=== PATIENT | male | born 1955 | race Caucasian/White ===

== ENCOUNTER 2017-11-13 16:12 | Emergency (ER) | payer OTHER ==
[~2017-11-13] VITALS: Ht 177.8 cm; Wt 86.2 kg
--- NOTE | 2017-11-13 17:02 | ED HAND/WRIST INJURY COMPLAINT ---
See Addendum History of Present Illness General Chief Complaint: Laceration Procedure Stated Complaint: LEFT WRIST LAC FROM LAMP Source: patient, family, old records Exam Limitations: no limitations Vital Signs & Intake/Output Vital Signs & Intake/Output Vital Signs Date Time Temp Pulse Resp B/P B/P Pulse O2 O2 Flow FiO2 Mean Ox Delivery Rate 11/13 1815 140/88 11/13 1618 96.8 88 15 156/94 97 Room Air Room Air Allergies Coded Allergies: No Known Allergies (11/13/17) Reconcile Medications Ibuprofen 600 MG TABLET 1 TAB PO Q6P PRN pain with food Triage Note: PT TO ED FOR LAC TO L WRIST APPROX HALF AN INCH. UNKNOWN LAST TETANUS. CUT BY LIGHT BULB. NO BLOOD THINNERS. CONTROLLED BLEEDING IN TRIAGE. "I I FELT IT HIT THE BONE WHEN IT CUT ME." DRESSING APPLIED IN TRIAGE. Triage Nurses Notes Reviewed? yes Occurred: just prior to arrival Duration: minute(s):, constant, continues in ED Timing: recent history Injury Environment: home Severity: moderate Pain/Injury Location: Left: Wrist. Context: blow, incision, laceration Method of Injury: incised, laceration (broken light bulb) Modifying Factors: Improves With: immobilization. Worsens With: movement. Associated Symptoms: stiffness HPI: Prior to admission patient was moving objects from storage when a light bulb from a box fell onto his left wrist causing laceration. He complains of pain at the site and limited range of motion. He denies fever chills nausea vomiting diarrhea abdominal pain chest pain shortness breath headache dysuria rash. Past History Travel History Traveled to [place] past 21 day No Medical History Any Pertinent Medical History? none Neurological: NONE EENT: NONE Cardiovascular: NONE Respiratory: NONE Gastrointestinal: NONE Hepatic: NONE Renal: NONE Musculoskeletal: NONE Psychiatric: NONE Endocrine: NONE Blood Disorders: NONE Cancer(s): NONE LOCOMOTIVE OBSERVER/Reproductive: NONE Tetanus Vaccine: 11/13/17 Surgical History Surgical History: non-contributory Psychosocial History What is your primary language Filipino Tobacco Use: Never used ETOH Use: denies use Illicit Drug Use: denies illicit drug use Family History Hx Contributory? No Review of Systems Review of Systems Constitutional: Reports: no symptoms. EENTM: Reports: no symptoms. Respiratory: Reports: no symptoms. Cardiovascular: Reports: no symptoms. GI: Reports: no symptoms. Genitourinary: Reports: no symptoms. Musculoskeletal: Reports: no symptoms. Skin: Reports: see HPI. Neurological/Psychological: Reports: no symptoms. Hematologic/Endocrine: Reports: no symptoms. Immunologic/Allergic: Reports: no symptoms. All Other Systems: Reviewed and Negative Physical Exam Physical Exam General Appearance: well developed/nourished, alert, awake, anxious, mild distress Head: atraumatic, normal appearance Eyes: Bilateral: normal appearance, PERRL, EOMI. Ears, Nose, Throat: normal pharynx, normal ENT inspection, hearing grossly normal Neck: normal inspection, supple, full range of motion Cardiovascular/Respiratory: normal breath sounds, normal peripheral pulses, regular rate/rhythm, no respiratory distress Back: normal inspection, normal range of motion Shoulder Left: normal range of motion, normal inspection Shoulder Right: normal range of motion, normal inspection Elbow Left: normal range of motion, normal inspection Elbow Right: normal range of motion, normal inspection Forearm Left: normal range of motion, normal inspection Forearm Right: normal range of motion, normal inspection Wrist Left: tenderness, evidence of injury, soft tissue tenderness, limited range of motion, dorsoradial laceration Wrist Right: normal range of motion, normal inspection Hand Left: normal inspection, normal range of motion Hand Right: normal inspection, normal range of motion Reflexes: 2+: bicep (R), bicep (L). Neurologic/Tendon: normal sensation, normal motor functions, normal tendon functions Skin: normal color, warm/dry Lymphatic: no anterior cervical jackie Progress Differential Diagnosis: contusion, fracture Plan of Care: Orders Procedure Date/time Status Durable Medical Equipment 11/14 1807 Active Diagnostic Imaging: Viewed by Me: Radiology Read. Discussed w/RAD: Radiology Read. Departure Departure Time of Disposition: 1804 Disposition: HOME OR SELF CARE Condition: Stable Clinical Impression Primary Impression: Laceration of wrist, left Referrals: Daniel COELLO,Carlos Holguin (PCP/Family) Departure Forms: Customer Survey General Discharge Information RELEASE- WORK Prescriptions: Current Visit Scripts Ibuprofen 1 TAB PO Q6P PRN pain #30 TAB with food Procedures Splinting Location: L wrist Manual Alignment Performed: No Pre-Made Type: velcro Splint: thumb spica Splint Applied By: splint applied by other Pre-Proc Neuro Vasc Exam: normal Post-Proc Neuro Vasc Exam: normal
--- NOTE | 2017-11-13 17:40 | RADIOLOGY REPORT ---
EXAMINATION: XR WRIST, LEFT CLINICAL INFORMATION: Laceration. Cut by glass. COMPARISON: None TECHNIQUE: PA, lateral, and oblique views of the left wrist. FINDINGS: No fracture or dislocation. The carpal arcs are maintained. Degenerative changes at the triscaphe and first CMC articulations. No widening of the distal radial ulnar joint. No radiodense foreign body demonstrated. IMPRESSION: No acute osseous abnormalities.
[2017-11-13] MEDS ORDERED: IBUPROFEN600 M1 PO (18:06)
[2017-11-13 18:15] VITALS: BP 140/88
== END 2017-11-13 18:16 ==
LOC: ERH 16:12
DX: S61.512A Laceration without foreign body of left wrist, initial encounter (principal); W45.8XXA Other foreign body or object entering through skin, initial encounter; Y92.9 Unspecified place or not applicable; Y93.9 Activity, unspecified
CPT/HCPCS: 73110-LT; J2001